=== PATIENT | male | born 1965 | race American Indian/Alaskan Native ===

== ENCOUNTER 2016-10-31 20:10 | Emergency (ER) | payer SELFPAY ==
[~2016-10-31] VITALS: Ht 180.3 cm; Wt 136.1 kg
[2016-10-31 20:47] VITALS: BP 178/84
--- NOTE | 2016-10-31 20:57 | Emergency Room Report ---
History of Present Illness General Chief Complaint: Male Urogenital Problems Source: Patient Nursing Documentation-[facility] Past Medical History: No Stated History Physical Exam Vital Signs Date Time Temp Pulse Resp B/P Pulse Ox O2 Delivery O2 Flow Rate FiO2 10/31/16 20:47 98.2 73 18 178/84 96 Room Air Medical Decision Making ER Course Was told the triage the patient was in the middle of getting triaged When he left Patient was not seen or evaluated And left before being seen Last Vital Signs Date Time Temp Pulse Resp B/P Pulse Ox O2 Delivery O2 Flow Rate FiO2 10/31/16 20:47 98.2 73 18 178/84 96 Room Air Status: other Disposition: LEFT W/OUT BEING SEEN Condition: Unknown JESÚS HERNANDEZ D.O. Oct 31, 2016 20:57
== END 2016-10-31 20:45 | disposition left against medical advice (07) ==
LOC: EMR 20:45
DX: N39.0 Urinary tract infection, site not specified (principal); Z53.21 Procedure and treatment not carried out due to patient leaving prior to being seen by health care provider
CPT/HCPCS: 99281

== ENCOUNTER → 2019-05-22 | Outpatient (CLI) | payer BC ==
--- NOTE | 2019-05-22 15:25 | Diagnostic Imaging Report ---
Indication: Hematuria Technique: Grayscale and duplex Doppler imaging of the kidneys performed. Comparison: None Findings: The size, contour, and echogenicity of both kidneys are within normal limits. There is no hydronephrosis.. The right kidney measures 12.8 cm. in length. The left kidney measures 13.1 cm. in length. The IVC is patent. Urinary bladder is unremarkable. IMPRESSION: Negative ultrasound the kidneys.
== END | disposition home or self-care (01) ==
LOC: EDSTATUS 11:56 → ULS 12:18
DX: R31.9 Hematuria, unspecified (principal)
CPT/HCPCS: 76770